=== PATIENT | male | born 1950 | race African-American/Black ===

== ENCOUNTER 2016-05-06 21:23 | Emergency (ER) | payer OTHER ==
[~2016-05-06] VITALS: Ht 175.3 cm; Wt 95.0 kg
[2016-05-07] MEDS ORDERED: KETOROLAC 60MG/2ML VIAL IM ONE (01:00)
[2016-05-07 01:16] VITALS: BP 140/73
== END 2016-05-07 02:03 | disposition home or self-care (01) ==
LOC: ER 21:50
DX: S82.832A Other fracture of upper and lower end of left fibula, initial encounter for closed fracture (principal); S92.415A Nondisplaced fracture of proximal phalanx of left great toe, initial encounter for closed fracture; E11.9 Type 2 diabetes mellitus without complications; E78.00 Pure hypercholesterolemia, unspecified; I10 Essential (primary) hypertension; Z98.890 Other specified postprocedural states; W10.8XXA Fall (on) (from) other stairs and steps, initial encounter; Y92.018 Other place in single-family (private) house as the place of occurrence of the external cause
CPT/HCPCS: 29515; 73610; 73630; 96372; 99284; J1885